=== PATIENT | male | born 1995 | race Two or more races ===

== ENCOUNTER 2023-05-23 14:24 | Emergency (ER) | payer BC ==
[2023-05-23 14:40] VITALS: BP 144/86; PULSE 72; RESP 19; TEMP 100.1; BMI 39.6
[2023-05-23] MEDS ORDERED: ACETAMINOPHEN 500 MG TABLET (FP) ONE (16:01)
[2023-05-23] MEDS: ACETAMINOPHEN 500 MG TABLET (FP) PO ONE (16:03)
== END 2023-05-23 16:30 | disposition home or self-care (01) ==
LOC: JER 14:24 → JERFT 14:24
DX: K08.89 Other specified disorders of teeth and supporting structures (principal); K04.7 Periapical abscess without sinus
CPT/HCPCS: 99283-25